=== PATIENT | female | born 1975 | race American Indian/Alaskan Native ===

== ENCOUNTER 2019-03-09 01:54 | Emergency (ER) | payer SELFPAY ==
[2019-03-09 02:13] VITALS: BP 152/89
[2019-03-09] MEDS ORDERED: KETOROLAC 60 MG/2 ML INJ IM ONE (02:51)
[2019-03-09] MEDS ORDERED: CYCLOBENZAPRINE 10 MG TAB PO ONE (02:51)
--- NOTE | 2019-03-09 02:52 | Emergency Department Report ---
ED Extremity Problem HPI - General Chief complaint: Extremity Problem,Nontraumatic Stated complaint: leg pain Time Seen by Provider: 03/09/19 02:25 Source: patient Mode of arrival: Ambulatory Limitations: No Limitations - History of Present Illness Initial comments: Patient is a 43-year-old female who presents to emergency room with complaints of left hip pain that began 4 days ago. she states the pain radiates down her leg. She denies any fall or injury at all. Patient states she was seen and another emergency department 2 days ago and received a "shot of steroids and a shot of something for pain." Patient denies any numbness, weakness, bowel or bladder incontinence, fever, chills, nausea vomiting, unexplained weight loss. Patient states her last menstrual cycle was February 15. Denies any past medical history or allergies medications. ED Review of Systems ROS: Stated complaint: SYNCOPE Other details as noted in HPI Comment: All other systems reviewed and negative ED Past Medical Hx - Past Medical History Previous Medical History?: No - Surgical History Past Surgical History?: No - Social History Smoking Status: Current Every Day Smoker Substance Use Type: None ED Physical Exam - General Limitations: No Limitations General appearance: alert, in no apparent distress - Head Head exam: Present: atraumatic, normocephalic - Eye Eye exam: Present: normal appearance - ENT ENT exam: Present: mucous membranes moist, TM's normal bilaterally, normal external ear exam - Extremities Exam Extremities exam: Present: other (no bony TTP of the left hip, left thigh, left knee, left ankle, left foot, or left toes, FROM of the left knee, ankle, foot, and toes with no difficulty, FROM of the left hip with some discomfort upon full flexion and internal rotation, 2+ distal pulses, sensation intact, no obvious joint laxity of the LLE, no obvious edema of the LLE) - Neurological Exam Neurological exam: Present: alert, oriented X3 - Psychiatric Psychiatric exam: Present: normal affect, normal mood - Skin Skin exam: Present: warm, dry, intact ED Course Vital Signs 03/09/19 03/09/19 02:09 03:18 Temperature 98.1 F Pulse Rate 83 Respiratory 20 16 Rate Blood Pressure 152/89 O2 Sat by Pulse 99 Oximetry ED Medical Decision Making - Medical Decision Making Patient is a 43-year-old female who presents to emergency room with complaints of left hip pain that began 4 days ago. she states the pain radiates down her leg. She denies any fall or injury at all. Patient states she was seen and another emergency department 2 days ago and received a "shot of steroids and a shot of something for pain." Patient denies any numbness, weakness, bowel or bladder incontinence, fever, chills, nausea vomiting, unexplained weight loss. Patient states her last menstrual cycle was February 15. Denies any past medical history or allergies medications. VSS. on exam: no bony TTP of the left hip, left thigh, left knee, left ankle, left foot, or left toes, FROM of the left knee, ankle, foot, and toes with no difficulty, FROM of the left hip with some discomfort upon full flexion and internal rotation, 2+ distal pulses, sensation intact, no obvious joint laxity of the LLE, no obvious edema of the LLE. no fall or injury no clinical indication for imaging at this time. pts discomfort treated with toradol and flexeril. advised pt may take Tylenol or ibuprofen for discomfort. may use ice packs, heating pads, epsom salt, rest, stretching. follow up with an orthopedic doctor and primary care doctor in the next 3-5 days. return to the emergency room for any new or worsening symptoms. - Differential Diagnosis strain, sprain, tendonitis, arthritis, DJD Critical care attestation.: If time is entered above; I have spent that time in minutes in the direct care of this critically ill patient, excluding procedure time. ED Disposition Clinical Impression: Left hip pain Disposition: TO HOME OR SELFCARE Is pt being admited?: No Does the pt Need Aspirin: No Condition: Stable Instructions: Arthralgia (ED) Additional Instructions: May take Tylenol or ibuprofen for discomfort. may use ice packs, heating pads, epsom salt, rest, stretching. follow up with an orthopedic doctor and primary care doctor in the next 3-5 days. return to the emergency room for any new or worsening symptoms. Referrals: NICKOLAS BOND MD [Staff Physician] - 3-5 Days [facility] [Provider Group] - 3-5 Days [facility] [Provider Group] - 3-5 Days Time of Disposition: 03:00 Print Language: AMHARIC
== END 2019-03-09 04:11 | disposition home or self-care (01) ==
LOC: ED 01:54
DX: M25.552 Pain in left hip (principal); F17.200 Nicotine dependence, unspecified, uncomplicated
CPT/HCPCS: 96372; 99282; J1885

== ENCOUNTER 2021-06-30 11:44 | Emergency (ER) | payer OTHER ==
[2021-06-30 11:52] VITALS: BP 141/90
[2021-06-30] MEDS ORDERED: dexAMETHasone 4 MG/ML VIAL IM STA (14:37)
[2021-06-30] MEDS ORDERED: KETOROLAC 60 MG/2 ML INJ IM ONE (14:37)
--- NOTE | 2021-06-30 14:45 | Emergency Department Report ---
ED General Adult HPI - General Chief complaint: Extremity Problem,Nontraumatic Stated complaint: SCIATICA Time Seen by Provider: 06/30/21 12:49 Source: patient Mode of arrival: Ambulatory Limitations: No Limitations - History of Present Illness Initial comments: 45-year-old -Irish female patient presents with complaints of right sided sciatica flare x2 weeks. She states she has tried many at home remedies including OTC medications, stretching, icing, and heat. States her symptoms are not improving. She denies any back injuries, numbness/tingling/weakness in her limbs, loss of bladder/bowel control, history of cancer, chronic steroid use, IV drug use, or difficulty with ambulation. Patient rates her pain as a 6/10 in severity. No other past medical histories or known drug allergies per patient - Related Data Previous Rx's Medication Instructions Recorded Last Taken Type Naproxen 500 mg PO BID PRN #20 tab 06/30/21 Unknown Rx Prednisone [predniSONE 10 mg 10 mg PO .TAPER #1 pack 06/30/21 Unknown Rx (6-Day Pack, 21 Tabs)] methocarbamoL [Methocarbamol] 750 - 1,500 mg PO TID PRN #30 tab 06/30/21 Unknown Rx Allergies Allergy/AdvReac Type Severity Reaction Status Date / Time No Known Allergies Allergy Unverified 06/30/21 11:51 ED Review of Systems ROS: Stated complaint: SCIATICA Other details as noted in HPI Constitutional: denies: chills, fever, malaise Gastrointestinal: denies: abdominal pain, hematochezia Genitourinary: denies: urgency, dysuria, frequency, hematuria Neurological: denies: numbness, paresthesias, abnormal gait ED Past Medical Hx - Social History Smoking Status: Current Every Day Smoker Substance Use Type: None - Medications Home Medications: Home Medications Medication Instructions Recorded Confirmed Last Taken Type Naproxen 500 mg PO BID PRN #20 tab 06/30/21 Unknown Rx Prednisone [predniSONE 10 mg 10 mg PO .TAPER #1 pack 06/30/21 Unknown Rx (6-Day Pack, 21 Tabs)] methocarbamoL [Methocarbamol] 750 - 1,500 mg PO TID PRN #30 tab 06/30/21 Unknown Rx ED Physical Exam - General Limitations: No Limitations General appearance: alert, in no apparent distress - Head Head exam: Present: atraumatic, normocephalic - Eye Eye exam: Present: normal appearance. Absent: scleral icterus - Respiratory Respiratory exam: Absent: respiratory distress - Cardiovascular Cardiovascular Exam: Present: regular rate - Back Exam Back exam: Present: full ROM. Absent: vertebral tenderness - Expanded Back Exam Expanded Back exam: Sciatic Notch Tenderness: Right - Neurological Exam Neurological exam: Present: alert, oriented X3, normal gait. Absent: motor sensory deficit - Psychiatric Psychiatric exam: Present: normal affect, normal mood ED Course Vital Signs 06/30/21 11:51 Temperature 98.8 F Pulse Rate 68 Respiratory 16 Rate Blood Pressure 141/90 [Right] O2 Sat by Pulse 98 Oximetry ED Medical Decision Making - Medical Decision Making 45-year-old -Irish female patient presents with complaints of right sided sciatica flare x2 weeks. She states she has tried many at home remedies including OTC medications, stretching, icing, and heat. States her symptoms are not improving. She denies any back injuries, numbness/tingling/weakness in her limbs, loss of bladder/bowel control, history of cancer, chronic steroid use, IV drug use, or difficulty with ambulation. Patient rates her pain as a 6/10 in severity. No other past medical histories or known drug allergies per patient Meds given here in ED for sciatica flare and patient to discharge home with similar medications along with stretching and icing for treatment. Recommend follow-up with PCP in 3 to 5 days. She is otherwise well-appearing, her vitals are within normal limits, she is stable for discharge home. Discussed in detail signs and symptoms that should prompt immediate return to the emergency department with patient who verbalized understanding Critical care attestation.: If time is entered above; I have spent that time in minutes in the direct care of this critically ill patient, excluding procedure time. ED Disposition Clinical Impression: Right sided sciatica Disposition: HOME / SELF CARE / HOMELESS Is pt being admited?: No Condition: Stable Instructions: Sciatica Prescriptions: methocarbamoL [Methocarbamol] 750 - 1,500 mg PO TID PRN #30 tab PRN Reason: muscle spasm/tightness Naproxen 500 mg PO BID PRN #20 tab PRN Reason: pain Prednisone [predniSONE 10 mg (6-Day Pack, 21 Tabs)] 10 mg PO .TAPER #1 pack Referrals: ALFREDO LOCKHART MD [Primary Care Provider] - 3-5 Days Forms: Work/School Release Form(ED)
== END 2021-06-30 15:58 | disposition home or self-care (01) ==
LOC: ED 11:44
DX: M54.31 Sciatica, right side (principal); F17.200 Nicotine dependence, unspecified, uncomplicated
CPT/HCPCS: 99282; J1100; J1885